=== PATIENT | female | born 1990 | race Caucasian/White ===

== ENCOUNTER 2016-08-30 08:39 | Emergency (ER) | payer OTHER ==
[2016-08-30 10:57] LABS: APPEARANCE,URINE SLIGHTLY-CLOUDY; BILIRUBIN,URINE NEGATIVE (NEGATIVE); GLUCOSE, URINE NEGATIVE (NEGATIVE); KETONES,URINE NEGATIVE (NEGATIVE); LEUKOCYTE ESTERASE,URINE NEGATIVE (NEGATIVE); NITRITE,URINE NEGATIVE (NEGATIVE); PROTEIN,URINE NEGATIVE (NEGATIVE); URINE SPECIFIC GRAVITY 1.018; UROBILINOGEN,URINE NEGATIVE mg/dL (<2.0)
--- NOTE | 2016-08-30 11:56 | ER Document Report ---
ED GI/ - General Mode of Arrival: Ambulatory Information source: Patient TRAVEL OUTSIDE OF THE [place] IN LAST 30 DAYS: No - HPI Patient complains to provider of: Vaginal pain - General Chief Complaint: Vaginal Pain Stated Complaint: VAGINAL PAIN Notes: Patient is a 25 year old female who presents to the emergency department complaining of vaginal pain. Patient reports she has burning and irritation when she urinates and after sexual intercourse. Patient also complains of itch and swelling to the area which has lessened some. Patient states that her lips were also swollen recently. Patient states that she is on control and uses condoms, usually not Latex. Patient denies and vaginal discharge. Patient does not have an anodic operator. Patient states she would like to be tested for STDs. (NAVEEN PATEL) - Related Data Allergies/Adverse Reactions: No Known Allergies Allergy (Verified 08/30/16 08:54) Past Medical History - General Information source: Patient - Social History Smoking Status: Never Smoker Frequency of alcohol use: None Drug Abuse: None Family History: Reviewed & Not Pertinent Patient has suicidal ideation: No Patient has homicidal ideation: No Past Surgical History: Reports: Hx Orthopedic Surgery - knee - Immunizations Hx Diphtheria, Pertussis, Tetanus Vaccination: Yes Review of Systems - Review of Systems Constitutional: No symptoms reported EENT: See HPI, Mouth swelling Cardiovascular: No symptoms reported Respiratory: No symptoms reported Gastrointestinal: No symptoms reported Genitourinary: See HPI, Pain Female Genitourinary: See HPI, Other - Vaginal pain and itch. denies: , Vaginal discharge Musculoskeletal: No symptoms reported Skin: No symptoms reported Hematologic/Lymphatic: No symptoms reported Neurological/Psychological: No symptoms reported -: Yes All other systems reviewed and negative Physical Exam - Vital signs Interpretation: Normal - General General appearance: Appears well, Alert - HEENT Head: Normocephalic, Atraumatic - Respiratory Respiratory status: No respiratory distress Chest status: Nontender Breath sounds: Normal Chest palpation: Normal - Cardiovascular Rhythm: Regular Heart sounds: Normal auscultation Murmur: No - Abdominal Inspection: Normal Distension: No distension Bowel sounds: Normal Tenderness: Nontender Organomegaly: No organomegaly - Genitourinary External exam: Normal - no tenderness to palpation Speculum exam: Vaginal discharge - cottage cheese like discharge, Other - cervix normal - Extremities General upper extremity: Normal inspection General lower extremity: Normal inspection - Neurological Neuro grossly intact: Yes Cognition: Normal Orientation: AAOx4 [place] Coma Scale Eye Opening: Spontaneous [place] Coma Scale Verbal: Oriented [place] Coma Scale Motor: Obeys Commands Rafael Coma Scale Total: 15 Speech: Normal - Psychological Associated symptoms: Normal affect, Normal mood - Skin Skin Temperature: Warm Skin Moisture: Dry Skin Color: Normal Course - Re-evaluation Re-evalutation: 08/30/16 Patient's history and exam are most consistent with bacterial vaginosis. No evidence for STDs. Serology negative. Patient will be treated with Flagyl. Patient is having some itching and is appeared to have some cottage cheese like discharge on her inner labia. Discharge home with Flagyl and fluconazole. Follow-up with [facility] as needed. Stable for discharge. (SANTOSH YOUSIF) - Vital Signs Vital signs: Temp Pulse Resp BP Pulse Ox 98.2 F 74 18 120/90 H 99 08/30/16 08:53 08/30/16 08:53 08/30/16 08:53 08/30/16 08:53 08/30/16 08:53 - Laboratory Laboratory results interpreted by me: 08/30/16 10:10 Urine Ascorbic Acid 20 H Discharge - Discharge Clinical Impression: Vaginal discharge Disposition: HOME, SELF-CARE Instructions: Vaginosis, Bacterial ([facility]), Vaginitis ([facility]), Vaginal Yeast Infection ([facility]) Prescriptions: Fluconazole [Diflucan] 150 mg PO ONCE PRN #1 tablet PRN Reason: Metronidazole [Flagyl 500 mg Tablet] 500 mg PO BID #14 tablet Forms: Return to Work Referrals: [facility] [Provider Group] - Follow up in 3-5 days Scribe Attestation: 08/30/16 19:42 I personally performed the services described in the documentation, reviewed and edited the documentation which was dictated to the scribe in my presence, and it accurately records my words and actions. (SANTOSH YOUSIF) Scribe Documentation - Scribe Written by Angela:: angela Garcia, 08/30/16, [id number] acting as scribe for :: [employer]
[2016-08-30] MEDS ORDERED: ONDANSETRON 4 MG TAB.RAPDIS PO ONE (12:20)
[2016-08-30] MEDS ORDERED: METRONIDAZOLE 500 MG TABLET PO ONE (12:20)
[2016-08-30] MEDS ORDERED: FLUCONAZOLE 100 MG TABLET PO ONE (12:20)
[2016-08-30 12:32] VITALS: BP 120/90
[2016-08-30 14:00] LABS: CHLAM PCR NOT DETECTED (NOT DETECT)
== END 2016-08-30 12:32 | disposition home or self-care (01) ==
LOC: ER 08:39
DX: N89.8 Other specified noninflammatory disorders of vagina (principal); R10.2 Pelvic and perineal pain
CPT/HCPCS: 81001; 81025; 87210; 87491; 87591; 99283

== ENCOUNTER 2016-09-02 20:46 | Emergency (ER) | payer OTHER ==
--- NOTE | 2016-09-02 22:58 | ER Document Report ---
ED General - General Chief Complaint: Sore Throat Stated Complaint: ABSCESS Notes: Patient is a 25-year-old female who presents with concerns of ulcerative lesions in her posterior pharynx. States she saw this when she was looking in the mirror and became concerned so she came to the emergency department. Notes mild sore throat. No known sick contacts. She has not had a fever. Nothing seems to improve or worsen her symptoms. No history of similar symptoms in the past. Denies any headache, neck pain, weakness, numbness, shortness of breath or difficulty swallowing. TRAVEL OUTSIDE OF THE [place] IN LAST 30 DAYS: No - Related Data Allergies/Adverse Reactions: No Known Allergies Allergy (Verified 09/02/16 21:27) Past Medical History - General Information source: Patient - Social History Smoking Status: Never Smoker Frequency of alcohol use: None Drug Abuse: None Lives with: Friend Family History: Reviewed & Not Pertinent Patient has suicidal ideation: No Patient has homicidal ideation: No Renal/ Medical History: Denies: Hx Peritoneal Dialysis Past Surgical History: Reports: Hx Orthopedic Surgery - knee - Immunizations Hx Diphtheria, Pertussis, Tetanus Vaccination: Yes Review of Systems - Review of Systems Notes: Constitutional: Negative for fever. HENT: Positive for sore throat. Eyes: Negative for visual changes. Cardiovascular: Negative for chest pain. Respiratory: Negative for shortness of breath. Gastrointestinal: Negative for abdominal pain, vomiting or diarrhea. Genitourinary: Negative for dysuria. Musculoskeletal: Negative for back pain. Skin: Negative for rash. Neurological: Negative for headaches, weakness or numbness. 10 point ROS negative except as marked above and in HPI. Physical Exam - Vital signs Vitals: Temp Pulse Resp BP Pulse Ox 98.7 F 81 16 110/77 99 09/02/16 21:22 09/02/16 21:22 09/02/16 21:22 09/02/16 21:22 09/02/16 21:22 Interpretation: Normal Notes: PHYSICAL EXAMINATION: GENERAL: Well-appearing, well-nourished and in no acute distress. HEAD: Atraumatic, normocephalic. EYES: Pupils equal round and reactive to light, extraocular movements intact, sclera anicteric, conjunctiva are normal. ENT: nares patent, altered lesions along the posterior pharynx and bilateral tonsillar pillars. Airway is otherwise widely patent. Uvula midline. NECK: Normal range of motion, bilateral anterior cervical lymphadenopathy LUNGS: Breath sounds clear to auscultation bilaterally and equal. No wheezes rales or rhonchi. HEART: Regular rate and rhythm without murmurs ABDOMEN: Soft, nontender, normoactive bowel sounds. No guarding, no rebound. No masses appreciated. EXTREMITIES: Normal range of motion, no pitting or edema. No cyanosis. NEUROLOGICAL: No focal neurological deficits. Moves all extremities spontaneously and on command. PSYCH: Normal mood, normal affect. SKIN: Warm, Dry, normal turgor, no rashes or lesions noted. Course - Re-evaluation Re-evalutation: 09/02/16 23:29 Patient presents with findings most consistent with a viral pharyngitis with multiple ulcerative lesions along her posterior pharynx and bilateral tonsils. No evidence of peritonsillar abscess, noel agina, or retropharyngeal abscess based on history and exam. At this time will discharge with return precautions and follow-up recommendations. Verbal discharge instructions given a the bedside and opportunity for questions given. Medication warnings reviewed. Patient is in agreement with this plan and has verbalized understanding of return precautions and the need for primary care follow-up in the next 24-72 hours. - Vital Signs Vital signs: Temp Pulse Resp BP Pulse Ox 97.7 F 86 16 128/73 H 98 09/02/16 23:43 09/02/16 23:34 09/02/16 23:34 09/02/16 23:34 09/02/16 23:34 Discharge - Discharge Clinical Impression: Viral pharyngitis Condition: Good Disposition: HOME, SELF-CARE Instructions: Sore Throat ([facility]) Additional Instructions: Your sore throat and the lesions you see in the back of your throat are due to a viral infection and should improve in the next several days. Please follow- up with your primary care doctor. Return if you began to have difficulty breathing, swallowing, vomiting, or any other symptoms that are worrisome to you. Referrals: ALIYA ORONA MD [Primary Care Provider] - Follow up as needed
[2016-09-02 23:36] VITALS: BP 128/73
== END 2016-09-02 23:43 | disposition home or self-care (01) ==
LOC: ER 20:46
DX: J02.8 Acute pharyngitis due to other specified organisms (principal); B97.89 Other viral agents as the cause of diseases classified elsewhere
CPT/HCPCS: 99282